=== PATIENT | female | born 1985 | race African-American/Black ===

== ENCOUNTER 2024-10-12 11:37 | Inpatient (IN) | payer OTHER ==
[2024-10-12 12:29] VITALS: BMI 29.7
[2024-10-12] MEDS ORDERED: IBUPROFEN 600 MG TABLET (FP) PO PRN (14:41)
[2024-10-12] MEDS ORDERED: DICYCLOMINE HCL 10 MG CAPSULE PO PRN (14:41)
[2024-10-12] MEDS ORDERED: MAGNESIUM HYDROX 2400MG/30ML ORAL SUSPENSION 30 ML CUP PO PRN (14:41)
[2024-10-12] MEDS ORDERED: NICOTINE POLACRILEX 4 MG LOZENGE BC PRN (14:41)
[2024-10-12] MEDS ORDERED: MAG HYDROX/AL HYDROX/SIMETH 30 ML UNIT-DOSE CUP PO PRN (14:41)
[2024-10-12] MEDS ORDERED: ONDANSETRON *ODT* 4 MG TABLET SL PRN (14:41)
[2024-10-12] MEDS ORDERED: NALOXONE (NARCAN) HCL 4 MG/0.1 ML SPRAY NS PRN (14:41)
[2024-10-12] MEDS ORDERED: NICOTINE POLACRILEX 4 MG GUM BUC PRN (14:41)
[2024-10-12] MEDS ORDERED: guaiFENesin 600 MG TABLET.ER (FP) PO PRN (14:41)
[2024-10-12] MEDS ORDERED: LOPERAMIDE HCL 2 MG CAPSULE PO PRN (14:41)
[2024-10-12] MEDS ORDERED: BENZOCAINE/MENTHOL (CHLORASEPTIC ) LOZENGE MM PRN (14:41)
[2024-10-12] MEDS ORDERED: POLYETHYLENE GLYCOL (HEALTHYLAX) 3350 17 GM PACKET PO PRN (14:41)
[2024-10-12] MEDS ORDERED: ACETAMINOPHEN 325 MG TABLET (FP) PO PRN (14:41)
[2024-10-12] MEDS ORDERED: chlordiazePOXIDE HCL 25 MG CAPSULE PO PRN (14:41)
[2024-10-12] MEDS ORDERED: BISMUTH SUBSALICYLATE 524 MG/30 ML PO PRN (14:41)
[2024-10-12] MEDS ORDERED: BENZONATATE 200 MG CAPSULE PO PRN (14:41)
[2024-10-12] MEDS ORDERED: ALBUTEROL SO4 HFA INHALER IH PRN (14:43)
[2024-10-12] MEDS ORDERED: amLODIPine BESYLATE 5 MG TABLET (FP) ONE (15:04)
[2024-10-12] MEDS: amLODIPine BESYLATE 10 MG TABLET (FP) PO SCH (15:06)
[2024-10-12] MEDS: chlordiazePOXIDE HCL 25 MG CAPSULE PO SCH (16:58)
[2024-10-12] MEDS: MELATONIN 5 MG TABLETS PO SCH (22:37)
[2024-10-12] MEDS: THIAMINE 100 MG TABLET PO SCH (22:37)
[2024-10-12] MEDS: METHOCARBAMOL 500 MG TABLET PO PRN (22:37)
[2024-10-13] MEDS: PRENATAL VITAMINS W/ FOLIC ACID TABLET (FP) PO SCH (10:31)
[2024-10-13 13:05] LABS: CHLORIDE 100 mmol/L (98-107); POTASSIUM 3.1 mmol/L (3.5-5.1); SODIUM 135 mmol/L (136-145)
[2024-10-13 13:11] LABS: CALCIUM 8.6 mg/dL (8.5-10.1)
[2024-10-13 13:12] LABS: ALBUMIN 3.5 g/dl (3.4-5.0); ANION GAP 6 mmol/L (4-13); BLOOD UREA NITROGEN 4.3 mg/dL (7-18); CO2 29 mmol/L (21-32); GLUCOSE,RANDOM 106 mg/dL (74-106); HEMATOCRIT 38.4 % (32.4-45.2); HEMOGLOBIN 13.5 GM/dL (10.7-15.3); MCH 33.2 pg (25.7-33.7); MCHC 35.1 g/dl (32.0-36.0); MEAN CELL VOLUME 94.5 fl (80-96); MEAN PLT VOLUME 8.5 fl (7.5-11.1); PLATELET COUNT 208 10^3/uL (134-434); RBC 4.06 M/mm3 (3.60-5.2); RDW 14.2 % (11.6-15.6); WHITE BLOOD COUNT 5.7 K/mm3 (4.0-10.0)
[2024-10-13 13:15] LABS: CREATININE 0.6 mg/dL (0.55-1.3); SGOT/AST 120 U/L (15-37); SGPT/ALT 102 U/L (13-61)
[2024-10-13 13:16] LABS: BILIRUBIN,TOTAL 1.6 mg/dL (0.2-1)
[2024-10-13 13:17] LABS: TOT PROT 6.3 g/dl (6.4-8.2)
[2024-10-13 13:18] LABS: ALK PHOS 82 U/L (45-117)
[2024-10-13] MEDS: POTASSIUM CHLORIDE ORAL LIQUID 20 MEQ/15 ML PO ONE (19:41)
[2024-10-13] MEDS: POTASSIUM CHLORIDE ORAL LIQUID 20 MEQ/15 ML PO SCH (22:16)
[2024-10-14] MEDS: chlordiazePOXIDE HCL 25 MG CAPSULE PO SCH (05:31)
[2024-10-15] MEDS ORDERED: chlordiazePOXIDE HCL 10 MG CAPSULE PO PRN
[2024-10-15] MEDS: chlordiazePOXIDE HCL 10 MG CAPSULE PO SCH (05:34)
[2024-10-15] MEDS: IBUPROFEN 400 MG TABLET (FP) PO PRN (17:30)
[2024-10-16] MEDS: chlordiazePOXIDE HCL 10 MG CAPSULE PO SCH (05:28)
[2024-10-16] MEDS: NALOXONE (NYS OPIOID OVERDOSE PROGRAM) 4 MG/0.1 ML SPRAY NS PRN (09:13)
[2024-10-16] MEDS ORDERED: NALOXONE (NYS OPIOID OVERDOSE PROGRAM) 4 MG/0.1 ML SPRAY NS PRN (09:30)
[2024-10-16 09:35] VITALS: BP 100/61; PULSE 77; RESP 16; TEMP 97.6
[2024-10-17] MEDS ORDERED: chlordiazePOXIDE HCL 10 MG CAPSULE PO ONE (05:00)
== END 2024-10-16 10:27 | disposition home or self-care (01) | DRG 775 ==
LOC: YASAS 11:37 → Y3N 14:50
PROVIDERS: ADMIT Allergy & Immunology; ATTEND Surgery
PROC: HZ2ZZZZ Detoxification Services for Substance Abuse Treatment (ICD-10-PCS; principal; 2024-10-12)
DX: F10.230 Alcohol dependence with withdrawal, uncomplicated (principal); F32.A Depression, unspecified; E87.6 Hypokalemia; I10 Essential (primary) hypertension; J45.909 Unspecified asthma, uncomplicated; R74.01 Elevation of levels of liver transaminase levels; Z87.891 Personal history of nicotine dependence
CPT/HCPCS: 36415; 80053; 80305; 80307; 81025; 84132; 85027; 86780; 93005; 93010